=== PATIENT | male | born 1990 | race Caucasian/White ===

== ENCOUNTER → 2019-04-04 | Outpatient (REF) | payer OTHER ==
[2019-04-04 18:28] LABS: BASO # 0.1 10^3/uL (0.0-0.2); BASO % 0.8 % (0.0-1.0); C REACTIVE PROTEIN QUANTITATIV < 0.30 MG/DL (0.00-0.30); EOS # 0.3 10^3/uL (0.0-0.50); EOS % 2.7 % (0.0-3.0); HEMATOCRIT 39.6 % (42.0-52.0); HEMOGLOBIN 13.1 g/dl (13.5-17.5); LYMPH # 2.5 10^3/uL (1.5-4.5); LYMPH % 26.6 % (24.0-44.0); MEAN CORPUSCULAR HGB CONC 33.1 g/dl (32.0-36.5); MEAN CORPUSCULAR VOLUME 90.8 fl (80.0-96.0); MONO # 0.6 10^3/uL (0.0-0.8); MONO % 6.6 % (0.0-5.0); NEUTROPHILS # 5.9 10^3/uL (1.8-7.7); NEUTROPHILS % 63.1 % (36.0-66.0); PLATELET COUNT, AUTOMATED 243 10^3/uL (150-450); RED BLOOD COUNT 4.36 10^6/uL (4.30-6.10); RHEUMATOID FACTOR QUANT < 10.0 IU/ML (<15.0); URIC ACID 5.2 MG/DL (3.5-7.2); WHITE BLOOD COUNT 9.3 10^3/uL (4.0-10.0)
[2019-04-04 19:36] LABS: ERYTHROCYTE SEDIMENTATION RATE 1 mm/hr (0-15)
[2019-04-06 15:06] LABS: ANTINUCLEAR ANTIBODIES DIRECT Negative (Negative)
== END ==
LOC: M LAB REF 18:04
PROVIDERS: ATTEND Physician Assistant Surgical
DX: M25.462 Effusion, left knee (principal)

== ENCOUNTER → 2019-05-08 | Outpatient (CLI) | payer OTHER ==
[~2019-05-08] MED LIST: PROHANCE 279.3MG/ML 15ML VIAL (A9576) As Ordered ONE
--- NOTE | 2019-05-08 17:40 | REP ---
MRI LEFT KNEE WITH AND WITHOUT CONTRAST: TECHNIQUE: Axial proton density fat saturation, sagittal proton density T2 STIR, water excitation, coronal proton density, proton density fat saturation. Axial T1 fat sat, post IV Gadolinium axial, sagittal and coronal T1 fat sat with the intravenous administration of 14.4 mL ProHance. The medial meniscus demonstrates suspected intrasubstance tearing peripherally diffusely. There is a large septated cystic mass extending along the periphery of the medial joint. It is closely opposed to the posterior horn of the medial meniscus. It appears to insinuate into the medial soft tissues and lies along the external aspect of the medial collateral ligament. It extends anteriorly into the medial margin of the infrapatellar bursa. It is isointense to muscle on the T1 fat sat images. It is diffusely hyperintense and appears fluid filled on the T2 weight images. Maximum AP dimension is approximately 7.3 cm, maximum craniocaudal dimension is approximately 4.5 cm in maximum and transverse dimension. It is approximately 4.6 cm. With the intravenous administration of Gadolinium there is peripheral enhancement of the pichardo and septations of this cystic mass. Lateral meniscus demonstrates no tear. The cruciate and collateral ligaments appear intact. Extensor mechanism is intact. No osteochondral defect is seen. There is no bone marrow edema or occult fracture. No marrow enhancement is seen. There is no joint effusion. IMPRESSION: Multiloculated septated cystic mass along the periphery of the medial joint. It is closely opposed to the posterior horn of the medial meniscus and extends into the medial soft tissues external to the medial collateral ligament and anteriorly to the medial margin of the infrapatellar bursa. There does appear to be an intrasubstance tear of the peripheral posterior horn of the medial meniscus. This could represent a very large complex meniscal cyst. There is enhancement of the Periphery and septations of the cyst. I can not exclude the possibility that this represents a synovial cyst or low grade cystic sarcoma such as synovial cell sarcoma. Electronically Signed by Everett Oliveira MD 05/09/2019 05:45 P
== END ==
LOC: M RAD 14:00
PROVIDERS: ATTEND Physician Assistant Surgical
DX: R22.42 Localized swelling, mass and lump, left lower limb (principal)
CPT/HCPCS: 73723; A9576